=== PATIENT | female | born 1980 | race American Indian/Alaskan Native ===

== ENCOUNTER 2018-09-12 11:36 | Emergency (ER) | payer SELFPAY ==
[2018-09-12 11:47] VITALS: BP 105/72
== END 2018-09-12 16:00 ==
LOC: ED 11:36
DX: R10.2 Pelvic and perineal pain (principal); Z53.21 Procedure and treatment not carried out due to patient leaving prior to being seen by health care provider
CPT/HCPCS: 87210; 87591